=== PATIENT | female | born 1940 | race Caucasian/White ===

== ENCOUNTER → 2020-06-19 08:32 | Outpatient (CLI) | payer MEDICARE, OTHER, SELFPAY ==
--- NOTE | 2020-06-19 | DI.NM.S_ITS ---
PROCEDURE: NM BONE SPECT RADIOPHARMACEUTICAL: 19.2 mCi Tc-99m MDP IV. INDICATIONS: Other anomalies of dental arch relationship TECHNIQUE: Delayed bone scintigrams were obtained of the region of interest 3-4 hours after intravenous administration of Tc-99m MDP. Additional tomographic (SPECT) imaging was performed and displayed in axial, coronal, and sagittal planes. COMPARISON: None. FINDINGS: Tracer uptake is seen in the region of the temporomandibular joints bilaterally. 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 Further assessment could be performed with dedicated temporomandibular joint MRI. Dictated by: Yogesh Guerrero M.D. on 06/19/2020 at 16:55 Approved by: Yogesh Guerrero M.D. on 06/19/2020 at 16:59
== END ==
PROVIDERS: Family Provider Family Medicine; PCP Family Medicine; Referring Provider Family Medicine; Visit Provider Dentist
DX: M26.29 Other anomalies of dental arch relationship (principal)
CPT/HCPCS: 78305; A9503

== ENCOUNTER → 2020-12-10 14:01 | Outpatient (CLI) | payer MEDICARE, OTHER, SELFPAY ==
--- NOTE | 2020-12-10 | DI.CT.S_ITS ---
PROCEDURE: CT ABDOMEN PELVIS WO/W CON INDICATIONS: gross hematuria TECHNIQUE: Optional 5 mm thick noncontrast images acquired from the diaphragm to the symphysis pubis. After the administration of intravenous contrast, 5 mm thick images acquired from the diaphragm to the symphysis pubis after a 10-minute delay. 2 mm thick coronal and sagittal reformats were then performed of the kidneys and ureters. For radiation dose reduction, the following was used: automated exposure control, adjustment of mA and/or kV according to patient size. COMPARISON: None. FINDINGS: Image quality: Excellent. Lung bases: Lung bases are clear. Heart size is normal. Urinary system: Both kidneys are normal in size, without hydronephrosis or nephrolithiasis on pre-contrast images. No perinephric fat stranding. There is normal bilateral renal enhancement. Renal calyces appear normal in morphology when filled with contrast. Opacified portions of both ureters demonstrate normal caliber. Bladder wall thickness is normal. No calcified bladder stones. Other solid organs: Liver is normal in size and enhancement. Gallbladder appears normal. Biliary system is non dilated. Pancreas enhances normally. Spleen is normal in size and enhancement. No adrenal nodules. Peritoneum and bowel: Bowel loops demonstrate normal wall thickness and caliber. A diverticulum is seen at the second portion of the duodenum filled with fluid and air. Moderate stool is seen throughout the colon. No free fluid or air. Nodes and vessels: No retroperitoneal or mesenteric adenopathy by size criteria. Aorta and inferior vena cava are normal in size. Moderate aortic atherosclerotic calcifications are present. Abdominal wall: No ventral hernias. Pelvis: Status post hysterectomy. No pathologic free pelvic fluid. No inguinal hernias or adenopathy. Bones: No suspicious bony lesions. No vertebral body compression fractures. Mild degenerative changes in the pubic symphysis and bilateral hips. Degenerative changes are noted in the lumbar spine. IMPRESSION: No urothelial lesion is seen. No renal or ureteral calculus. Dictated by: Teto Jade M.D. on 12/10/2020 at 15:56 Approved by: Teto Jade M.D. on 12/10/2020 at 16:08
== END ==
PROVIDERS: Family Provider Family Medicine; PCP Family Medicine; Referring Provider Urology; Visit Provider Urology
DX: R31.0 Gross hematuria (principal)
CPT/HCPCS: 74178

== ENCOUNTER → 2020-12-13 08:03 | Outpatient (CLI) | payer MEDICARE, OTHER, SELFPAY ==
--- NOTE | 2020-12-13 08:07 | DI.MRI.S_ITS ---
PROCEDURE: MR TMJ WO CON INDICATIONS: Articular disc disorder of left temporomandibular TECHNIQUE: Axial T1 spin echo, coronal and sagittal PD fast spin echo through the temporomandibular joints, in both the closed- and open-mouth positions. COMPARISON: None. FINDINGS: Image quality: Excellent. Right: Joint is normally aligned on closed and open-mouth positioning. Articular disk demonstrates normal location and morphology. Joint space irregularity can be seen, with mild osteophyte formation. Left: Joint is normally aligned on closed and open-mouth positioning. There tracheal or disc is small in size and irregular. On the open mouth image, the articular disc does properly capture. Joint space irregularity with mild osteophyte formation can be seen. IMPRESSION: Abnormal left articular disc, which is small in size and irregular. Bilateral degenerative changes are seen, with joint space irregularity and osteophyte formation. Dictated by: Gavin Cervantes M.D. on 12/13/2020 at 9:07 Approved by: Gavin Cervantes M.D. on 12/13/2020 at 9:10
== END ==
PROVIDERS: Family Provider Family Medicine; PCP Family Medicine; Referring Provider Dentist; Visit Provider Dentist
DX: M26.69 Other specified disorders of temporomandibular joint (principal); M26.632 Articular disc disorder of left temporomandibular joint
CPT/HCPCS: 70336

== ENCOUNTER → 2021-10-02 11:26 | Outpatient (CLI) | payer MEDICARE, OTHER, SELFPAY ==
--- NOTE | 2021-10-02 | DI.RAD.S_ITS ---
PROCEDURE: XR FOOT RT 2V INDICATIONS: RIGHT FOOT PAIN, SWELLING OF RIGHT FOOT TECHNIQUE: 2 views of the foot were acquired. COMPARISON: None. FINDINGS: Bones: No fractures or dislocations. There is mild to moderate degeneration at the 1st metatarsophalangeal joint and mild degeneration of the interphalangeal joints. No suspicious bony lesions. Soft tissues: There is mild periarticular soft tissue swelling at the 1st metatarsophalangeal joint. IMPRESSION: 1. No fracture or dislocation. 2. Mild to moderate degeneration of the 1st metatarsophalangeal joint and mild degeneration of the interphalangeal joints. Dictated by: Carl Sharma M.D. on 10/02/2021 at 16:16 Approved by: Carl Sharma M.D. on 10/02/2021 at 16:17
== END ==
PROVIDERS: Family Provider Family Medicine; PCP Family Medicine; Referring Provider Nurse Practitioner Family; Visit Provider Nurse Practitioner Family
DX: M19.071 Primary osteoarthritis, right ankle and foot (principal); M79.671 Pain in right foot; M79.89 Other specified soft tissue disorders
CPT/HCPCS: 73620

== ENCOUNTER → 2023-09-07 11:59 | Outpatient (CLI) | payer MEDICARE, OTHER, SELFPAY ==
--- NOTE | 2023-09-07 12:00 | DI.RAD.S_ITS ---
PROCEDURE: XR RIBS LT MIN 3V W CXR1V INDICATIONS: popped rib stretching yesterday while gardening TECHNIQUE: 2 views of the ribs were acquired, along with a single view chest. COMPARISON: None. FINDINGS: Surgical changes and devices: None. Bones and chest wall: No fractures or dislocations. No suspicious bony lesions. Overlying soft tissues appear unremarkable. Lungs and pleura: No pleural effusions or pneumothorax. Lungs appear clear. Mediastinum: Mediastinal contours appear normal. Heart size is normal. IMPRESSION: No displaced rib fracture or pneumothorax. Dictated by: Haris Howard M.D. on 09/07/2023 at 14:47 Approved by: Haris Howard M.D. on 09/07/2023 at 14:47
== END ==
PROVIDERS: Family Provider Family Medicine; PCP Family Medicine; Referring Provider Physician Assistant; Visit Provider Physician Assistant
DX: S29.9XXA Unspecified injury of thorax, initial encounter (principal); X58.XXXA Exposure to other specified factors, initial encounter
CPT/HCPCS: 71101

== ENCOUNTER → 2024-05-04 11:51 | Outpatient (CLI) | payer MEDICARE, OTHER, SELFPAY | PROVIDERS: Family Provider Family Medicine; PCP Family Medicine; Visit Provider Nurse Practitioner Family | DX: T14.8XXA Other injury of unspecified body region, initial encounter (principal) | CPT/HCPCS: 87070; 87075; 87077; 87147; 87186; 87205 ==

== ENCOUNTER 2024-11-28 11:40 | Day surgery (SDC) | payer MEDICARE, OTHER, SELFPAY ==
[2024-11-21 13:51] VITALS: BMI 20.7
--- NOTE | 2024-11-28 | PATH_ITS ---
[facility] Accession Number: [id number] No. of containers..01 Tissue . 01 Material submitted: . anal skin - ANAL LESION . 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 MRV 12/04/2024 1556 Local . 01 Comment: A p16 stain demonstrates block-like epithelial expression with a Ki67 stain showing full-thickness squamous nuclear expression, supporting the above diagnosis. . This case has been reviewed by Dr. Nargis Li, who agrees with the above diagnosis. . * This test was developed and the performance characteristics were validated by [facility]. It has not been cleared or approved by the U.S. Food and Drug Administration. . 01 Electronically signed: . Tommy Cotter MD, Dermatopathologist NPI- [id number] . 01 Gross description: . ANAL LESION: Received in formalin is 1 fragment of gan soft tissue measuring 0.7 x 0.6 x 0.4 cm. Specimen is submitted in its entirety in 1 cassette. /RICARDO 11/29/2024 1739 Local . 01 Pathologist provided ICD-10: D04.9 . 01 CPT . 124695, [id number], [id number] Specimen Comment: A courtesy copy of this report has been sent to [phone] Performed at: [address] [address], [place], [place] [id number] MD Carl Walton MD Phone: [phone]
[2024-11-28] MEDS: LACTATED RINGERS 1,000 ML 42 ML IV (11:50)
[2024-11-28] MEDS: ACETAMINOPHEN 325 MG TABLET 650 MG PO (11:50)
[2024-11-28 12:02] VITALS: BP 154/88; PULSE 78; RESP 16; TEMP 36.3; O2SAT 100; BMI 20.7
--- NOTE | 2024-11-28 12:03 | P.HP_ITS ---
History of Present Illness History of Present Illness Date Patient Seen: 11/28/24 Time Patient Seen: 12:03 Chief complaint: Exam Under Anesthesia Rectal Narrative: Tari is an 84-year-old woman with prolapsing internal hemorrhoids versus a polyp or some other prolapsing tissue. See the office note from October for details. FORMERLY [facility] Medical History (Updated 10/30/24 @ 14:56 by Ángel Moreland MD) Anal polyp Surgical History (Updated 01/04/18 @ 05:48 by Conversion Provider) Status post breast lumpectomy Status post vaginal hysterectomy Social History household members: spouse Smoking Status: Never smoker Meds Home Medications and Allergies Home Medications Medication Instructions Recorded Confirmed Type MAGNESIUM (#MAGNESIUM) 350 mg PO HS ##0 05/17/11 10/30/24 History cholecalciferol (vitamin D3) 25 1,000 iu PO Q DAY ##0 05/17/11 10/30/24 History mcg (1,000 unit) tablet (Vitamin D3) ACETAMINOPHEN 0 mg PO PRN ##0 03/23/12 10/30/24 History ASCORBIC ACID (VITAMIN C) 1,000 mg PO PRN ##2 03/23/12 10/30/24 History multivitamin (Multiple Vitamins 1 tab PO QDAY #0 tabs 04/27/16 10/30/24 History tablet) mupirocin 2 % topical ointment 1 applic topical TID #22 grams 05/04/24 10/30/24 Rx Allergies Allergy/AdvReac Type Severity Reaction Status Date / Time Sulfa (Sulfonamide Allergy Severe RASH Verified 10/30/24 14:39 Antibiotics) (POSSIBLE [SULFA (SULFONAMIDE SWELLING) ANTIBIOTICS)] bee venom protein (honey bee) AdvReac Severe swelling Verified 10/30/24 14:39 nitrofurantoin AdvReac Severe Rash Verified 10/30/24 14:39 Exam Const General: No acute distress Assessment & Plan Assessment and plan (1) Anal polyp: Status: Acute (2) Anal lesion: Status: Acute Plan Examination under anesthesia in the prone position. Possible hemorrhoidectomy versus other biopsy. Time-Based Coding :: [TOTAL MINUTES] spent with patient and on the chart (including review of chart, obtaining history, exam, reviewing outside data, placing orders, documenting exam and treatment plan, and counseling patient) on [DATE]. PROFEE Business Performance Advisor Document charge(s): No
[2024-11-28] MEDS: BUPIVACAINE LIPOSOME 266 MG/20 ML VIAL INJ (12:53)
--- NOTE | 2024-11-28 13:07 | PM.OP.1 ---
Operative Date/Time/Diagnoses Date of procedure: 11/28/24 Time of procedure: 13:09 Pre-op diagnosis: Anal lesion Post-op diagnosis: same Procedure & Clinicians Procedure: Examination under anesthesia and biopsy of anal lesion Same procedure as scheduled: Yes Surgeon: Ángel Moreland Small Offset Printer: Shar Reddy Anesthesia Type: General Operative Notes Procedure in detail: The patient was brought to the operating room and general endotracheal anesthesia was induced. She was placed in the prone frank-knife position. The perineum was prepped and draped in the usual fashion and a time-out was performed. The buttocks were taped apart for exposure. Examination demonstrated 2 cm x 3 cm sessile lesion occupying the posterior and posterior right portions of the perineum extending from the dentate line. Looking at at the face of clock this would represent 11 o'clock to 3 o'clock. A digital rectal exam was performed and no significant internal component was palpated. A 15 blade scalpel was used to excise about 1 cm x 5 mm of the lesion in the posterior suctioned. Exparel was injected into the tissue around the wound. A small amount of cautery was used for hemostasis. Hemostatic Gelfoam was placed into the anal canal. The patient was awakened and brought to recovery room. EBL: 2 mL Specimen: Anal lesion Shar THRASHER provided assistance with exposure, retraction and closure of incisions. Post-operative Condition: stable Disposition: PACU
[2024-11-28 13:08] VITALS: BP 157/75; PULSE 75; RESP 16; TEMP 36.2; O2SAT 100
[2024-11-28 13:13] VITALS: BP 154/83; PULSE 73; RESP 12; TEMP 36.2; O2SAT 99
[2024-11-28 13:19] VITALS: BP 162/66; PULSE 69; RESP 12; TEMP 36.3; O2SAT 95
[2024-11-28 13:27] VITALS: BP 138/72; PULSE 75; RESP 18; TEMP 36.3; O2SAT 96
== END 2024-11-28 13:50 | disposition home or self-care (01) ==
PROVIDERS: Family Provider Family Medicine; PCP Registered Nurse; Referring Provider Surgery; Visit Provider Surgery
PROC: (CPT 45990; principal; 2024-11-28 13:00)
DX: D01.3 Carcinoma in situ of anus and anal canal (principal)
CPT/HCPCS: 46922; J0666; J1100; J2405; J2704; J3010

== ENCOUNTER 2025-01-27 12:20 | Emergency (ER) | payer MEDICARE, OTHER, SELFPAY ==
[2025-01-27] VITALS (13 sets, daily range): BP systolic 135–196; BP diastolic 60–98; PULSE 60–81; RESP 14–24; TEMP 36.4; O2SAT 99–100
--- NOTE | 2025-01-27 12:32 | DI.CT.S_ITS ---
PROCEDURE: CT HEAD/BRAIN WO CON INDICATIONS: Trauma TECHNIQUE: Noncontrast 4.5 mm thick angled axial sections acquired from the foramen magnum to the vertex, with coronal and sagittal reformats. For radiation dose reduction, the following was used: automated exposure control, adjustment of mA and/or kV according to patient size. COMPARISON: None. FINDINGS: Image quality: Diagnostic. CSF spaces: Basal cisterns are patent. No extra-axial fluid collections. The ventricles are symmetric in size and shape. Brain: No acute intracranial hemorrhage or mass effect. There is cerebral volume loss, with resultant ventricular and sulcal prominence. There are periventricular and deep white matter chronic small vessel ischemic changes. There is intracranial internal carotid artery atherosclerosis. Skull and face: Calvarium and visualized facial bones appear intact, without suspicious lesions. Sinuses: Visualized sinuses and mastoids are clear. IMPRESSION: No acute intracranial pathology. Approved by: Teto Jade M.D. on 01/27/2025 at 12:44
--- NOTE | 2025-01-27 12:32 | DI.CT.S_ITS ---
PROCEDURE: CT CERVICAL SPINE WO CON INDICATIONS: Trauma TECHNIQUE: Noncontrast 3 mm thick sections acquired from the skull base to the T4 level. Sagittal and coronal reformats were then constructed. For radiation dose reduction, the following was used: automated exposure control, adjustment of mA and/or kV according to patient size. COMPARISON: None. FINDINGS: Image quality: Excellent. Bones: No acute fractures or dislocations. Visualized superior ribs are intact. Multilevel disc space narrowing and degenerative endplate changes. Multilevel uncovertebral joint and facet hypertrophy. Soft tissues: Prevertebral soft tissues are normal in thickness. No paravertebral hematomas. No apical pneumothoraces. Atherosclerotic calcifications at the bilateral carotid bifurcations IMPRESSION: No acute displaced fracture or traumatic subluxation. Approved by: Teto Jade M.D. on 01/27/2025 at 12:46
--- NOTE | 2025-01-27 12:32 | DI.CT.S_ITS ---
PROCEDURE: CT TRAUMA CHEST ABDOMEN PELVIS INDICATIONS: Trauma; back pain post fall TECHNIQUE: MDCT axial chest images were obtained with IV contrast in the arterial phase. Maximum intensity projections and multiplanar reformats were obtained. MDCT axial abdomen and pelvis images were obtained with IV contrast in the portal venous phase. Multiplanar reformats were obtained. Optional delayed phase scanning may also be obtained Advanced techniques were used to lower patient radiation exposure. COMPARISON:[facility], CT, CT ABDOMEN PELVIS WO/W CON, 12/10/2020, 14:37. FINDINGS Image Quality: Diagnostic. Chest: Lungs and pleura: No pneumothorax or hemothorax. Trace left pleural effusion. No pulmonary contusions or lacerations. Mild lower lobe bronchiectasis. Focal mucous impaction of a superior segment right lower lobe bronchus. No solid pulmonary nodule requiring follow-up. Vascular: No dissection or pseudoaneurysm. No incidental central pulmonary embolism. No hemopericardium. Mediastinum: No mediastinum hematoma. No suspicious mass or lymph nodes. No actionable thyroid nodules. Chest wall: Intact clavicles, scapula, and glenohumeral joint. Surgical clips in the left breast. No displaced rib fractures. Thoracic spine: Linear sclerosis is seen near the superior endplate of T12 without loss of vertebral body height. ABDOMEN and PELVIS: Liver: No laceration or capsular hematoma. Gallbladder: Unremarkable. Biliary system: Non-dilated. Pancreas: Unremarkable. Spleen: No laceration or capsular hematoma. Adrenals: No suspicious nodules. Kidneys: No contrast extravasation or hydronephrosis. No solid masses. Benign-appearing right renal cyst. Vessels and lymph nodes: No pathology lymph nodes by size criteria. No dissection or aneurysm. No retroperitoneal hematoma. Bowel and peritoneum: No suspicious region of mesenteric hemorrhage or hemoperitoneum. No bowel obstruction. Diverticulum is noted at the 2/3 portion of the duodenum. Colonic diverticulosis. Pelvis: Bladder is distended. Status post hysterectomy. Pelvic ring and femurs: No pelvic ring disruption. No hip fractures. Lumbar spine: No acute fracture or traumatic subluxation. Generalized osteopenia. Multilevel degenerative changes. Abdominal wall: No drainable fluid collection or hematoma. IMPRESSION: 1. Questionable subtle nondepressed fracture of the T12 vertebral body without significant loss of vertebral body height. Recommend correlation for point tenderness. 2. Trace left pleural effusion. No pneumothorax. No displaced rib fracture. Approved by: Teto Jade M.D. on 01/27/2025 at 13:05
--- NOTE | 2025-01-27 12:42 | DI.CT.S_ITS ---
PROCEDURE: CT FACIAL BONES WO CON INDICATIONS: fall down stairs, face trauma TECHNIQUE: Noncontrast 2.5 mm thick axial images acquired from the mandible through the frontal sinuses, with coronal and sagittal reformatting. For radiation dose reduction, the following was used: automated exposure control, adjustment of mA and/or kV according to patient size. COMPARISON: None. FINDINGS: Image quality: Excellent. Bones and teeth: Evaluation of the teeth is suboptimal due to dental artifact. Orbital nguyen are intact. Sinus nguyen show no fracture or deformity. Nasal bones and septum are intact. Visualized portions of the mandible demonstrate no fractures or subluxation. Zygomatic arches are intact. Pterygoid plates are intact. Visualized portions of the skull base and auditory canals are intact. Sinuses: Paranasal sinuses are aerated, without fluid levels, mucosal thickening, or mucoceles. Mastoid air cells are aerated. Soft tissues: Skin laceration is noted at the inferior left aspect of the chin. No radiopaque foreign body. Mild surrounding subcutaneous edema. No enlarged lymph nodes. No soft tissue lacerations or debris. Vascular: Visualized vascular structures appear normal in the absence of contrast. Bony vascular foramina and canals are intact. IMPRESSION: Skin laceration is noted at the chin with subcutaneous edema. No radiopaque foreign body. No acute facial fracture. Approved by: Teto Jade M.D. on 01/27/2025 at 13:13
[2025-01-27 12:44] LABS: Add Manual Diff / Slide Review NO; Basophils Absolute Auto 100 /uL (0-100); Basophils Percent Auto 0.7 % (0-2); Eosinophils Absolute Auto 0 /uL (0-450); Eosinophils Percent Auto 0.3 % (2-4); Hematocrit 42.8 % (36-46); Hemoglobin 14.4 g/dL (12.0-16.0); Lymphocytes Absolute Auto 700 /uL (1100-4500); Lymphocytes Percent Auto 7.7 % (25-40); Mean Corpuscular HGB Conc 33.6 % (30-36); Mean Corpuscular Volume 92.3 fL (80-100); Monocytes Absolute Auto 700 /uL (0-900); Monocytes Percent Auto 7.4 % (3-14); Neutrophils Absolute Auto 7400 /uL (1500-7000); Neutrophils Percent Auto 83.9 % (50-75); Platelet Count 247 X10^3/uL (150-400); Red Blood Cell Count 4.64 X10^6/uL (4.0-5.2); Red Cell Distribution Width 12.7 % (11.6-14.8); White Blood Cell Count 8.9 X10^3/uL (4.5-11.0)
[2025-01-27 12:49] LABS: Prothrombin Time 10.8 SECONDS (9.4-12.5)
[2025-01-27 12:51] LABS: PTT Partial Thromboplastin Tim 25 SECONDS (25.1-36.5)
[2025-01-27 12:53] LABS: Alanine Aminotransferase 28 IU/L (<35); Albumin 4.5 g/dL (3.5-5.0); Albumin Globulin Ratio 1.4 (1.0-2.8); Alkaline Phosphatase 92 U/L (38-126); Aspartate Aminotransferase 55 IU/L (14-36); BUN Creatinine Ratio 22.7 (6-22); Blood Urea Nitrogen 17 mg/dL (7-17); Calcium 9.4 mg/dL (8.4-10.2); Carbon Dioxide 25 mmol/L (22-32); Chloride 102 mmol/L (98-107); Estimated Glomerular Filt Rate > 60 mL/min (>60); Globulin 3.3 g/dL (1.7-4.1); Glucose 106 mg/dL (70-99); Lipase 107 U/L (23-300); Potassium 4.7 mmol/L (3.4-5.1); Sodium 135 mmol/L (137-145); Total Protein 7.8 g/dL (6.3-8.2)
[2025-01-27 12:54] LABS: HEMOLYSIS 123 (0-50)
[2025-01-27 12:55] LABS: Lactate (Lactic Acid) 1.7 mmol/L (0.7-2.1)
--- NOTE | 2025-01-27 12:57 | DI.RAD.S_ITS ---
PROCEDURE: XR FOREARM LT 2V INDICATIONS: fall down steps, px to humerus elbow and forearm TECHNIQUE: 2 views of the forearm were acquired. COMPARISON: None. FINDINGS: Bones: Displaced fracture of the capitellum is noted. No mid to distal radial or ulnar fracture. No wrist fracture is seen. Degenerative changes are seen at the 1st carpometacarpal joint. Soft tissues: No suspicious soft tissue calcifications. IMPRESSION: Displaced fracture of the capitellum is partially included. No distal radial/ulnar fracture. Approved by: Teto Jade M.D. on 01/27/2025 at 13:09
--- NOTE | 2025-01-27 12:57 | DI.RAD.S_ITS ---
PROCEDURE: XR HUMERUS LT 2V INDICATIONS: fall down steps, px to humerus elbow and forearm TECHNIQUE: 2 views of the humerus were acquired. COMPARISON: None. FINDINGS: Bones: No acute fractures or dislocations. Distal humerus is not included on this exam No suspicious bony lesions. Soft tissues: No suspicious soft tissue calcifications. IMPRESSION: No acute osseous abnormality in the proximal humerus. If there is continued clinical concern or persistent symptoms, repeat radiographs or cross-sectional imaging (e.g. CT, MRI) may be helpful for further evaluation. Approved by: Teto Jade M.D. on 01/27/2025 at 13:06
--- NOTE | 2025-01-27 12:57 | DI.RAD.S_ITS ---
PROCEDURE: XR ELBOW LT MIN 3V INDICATIONS: fall down steps, px to humerus elbow and forearm TECHNIQUE: 3 views of the elbow were acquired. COMPARISON: None. FINDINGS: Bones: Comminuted intra-articular fracture of the distal humerus with displacement of the capitellum superiorly. Soft tissues: Suspected joint effusion. No suspicious soft tissue calcifications. IMPRESSION: Comminuted intra-articular fracture of the distal humerus with superior displacement of the capitellum. Additional osseous structures in the elbow are difficult to evaluate due to superimposition, and CT could be performed for further evaluation if indicated clinically. Approved by: Teto Jade M.D. on 01/27/2025 at 13:08
--- NOTE | 2025-01-27 14:20 | DI.CT.S_ITS ---
PROCEDURE: CT UE LT WO CON INDICATIONS: comminuted elbow fx, CT advised TECHNIQUE: Noncontrast 1-1.5 mm axial sections were acquired through the elbow joint, with coronal and sagittal reformats. For radiation dose reduction, the following was used: automated exposure control, adjustment of mA and/or kV according to patient size. COMPARISON: [facility], CR, XR ELBOW LT MIN 3V, 01/27/2025, 13:05. FINDINGS: Image quality: Excellent. Bones: Comminuted displaced intra-articular fracture of the distal humerus. Capitellum articular surface component is displaced superiorly by up to 2.8 cm. Trochlear articular surface component is displaced superiorly by approximately 0.7 cm. Mildly displaced fracture of the lateral epicondyle. Medial epicondyle is intact. No definite radial head or proximal ulnar fracture is seen. Soft tissues: Moderate lipohemarthrosis. The tendons, ligaments, and articular cartilages are not well evaluated with CT. Mild subcutaneous edema overlying the olecranon. IMPRESSION: 1. Comminuted displaced fracture of the distal humerus with significant displacement of the capitellar articular surface component and mild displacement of the trochlear articular surface component. 2. No definite proximal radial or ulnar fracture. 3. Moderate lipohemarthrosis. Approved by: Teto Jade M.D. on 01/27/2025 at 14:15
--- NOTE | 2025-01-27 14:47 | ED.GENADULT ---
HPI - General Adult General Chief complaint: Tra[facility] L elbow px Time Seen by Provider: 01/27/25 12:31 History of Present Illness HPI narrative: 84-year-old female resident of [place], fell down 3 steps outside at her home, complaining of pain and swelling to her left elbow, back pain upper mid lower, also laceration to her chin. Doubts loss of consciousness. Denies neck pain. No focal numbness or weakness to face arm or leg, left upper extremity motor functions limited by elbow pain. No swelling or pain to the left distal wrist or hand or fingers. Nor to left upper arm or shoulder. No pain along her clavicle or anterior chest or trunk. Related Data Home Medications Medication Instructions Recorded Confirmed MAGNESIUM (#MAGNESIUM) 350 mg PO HS ##0 05/17/11 12/18/24 cholecalciferol (vitamin D3) 25 1,000 iu PO Q DAY ##0 05/17/11 12/18/24 mcg (1,000 unit) tablet (Vitamin D3) ACETAMINOPHEN 0 mg PO PRN ##0 03/23/12 12/18/24 ASCORBIC ACID (VITAMIN C) 1,000 mg PO PRN ##2 03/23/12 12/18/24 multivitamin (Multiple Vitamins 1 tab PO QDAY #0 tabs 04/27/16 12/18/24 tablet) Previous Rx's Medication Instructions Recorded mupirocin 2 % topical ointment 1 applic topical TID #22 grams 05/04/24 Allergies Allergy/AdvReac Type Severity Reaction Status Date / Time Sulfa (Sulfonamide Allergy Severe RASH Verified 12/18/24 12:56 Antibiotics) (POSSIBLE [SULFA (SULFONAMIDE SWELLING) ANTIBIOTICS)] bee venom protein (honey bee) AdvReac Severe swelling Verified 12/18/24 12:56 nitrofurantoin AdvReac Severe Rash Verified 12/18/24 12:56 Patient History Medical History Anal polyp Surgical History Status post breast lumpectomy Status post vaginal hysterectomy Social History household members: spouse Exam Narrative Exam Narrative: GENERAL: Well-developed patient, in mild distress. HEAD: Atraumatic. Normocephalic. EYES: Pupils equal round and reactive. Extraocular motions intact. No scleral icterus. No injection or drainage. ENT: Nose without bleeding, purulent drainage. Throat without erythema, tonsillar hypertrophy or exudate. Airway patent. Curvilinear laceration 2 cm length chin under angle of mandible. NECK: Trachea midline. Non tender CARDIOVASCULAR: Regular rate and rhythm without murmurs, gallops, or rubs. RESPIRATORY: Clear to auscultation. Breath sounds equal bilaterally. No wheezes, rales, or rhonchi. GASTROINTESTINAL: Abdomen soft, non-tender, nondistended. EXTREMITIES: Tenderness to left elbow, distal wrist without gross deformity, nor any tenderness or swelling to hand or fingers in the left side. No upper arm shoulder clavicle tenderness left side. BACK: Nontender without deformity or crepitance. No flank tenderness. NEURO: AOx3. Motor functions grossly nonfocal SKIN: No rash or erythema of visible areas Initial Vital Signs Initial Vital Signs: Vital Signs Temperature 97.5 F L 01/27/25 12:27 Pulse Rate 60 01/27/25 12:27 Respiratory Rate 20 01/27/25 12:27 Blood Pressure 196/85 H 01/27/25 12:27 Pulse Oximetry 100 01/27/25 12:27 Oxygen Delivery Method Room Air 01/27/25 12:27 Procedures Laceration Repair Laceration 1: Time of procedure: 17:30 Site: face (chin) Size (cm): 2 Description: linear (curvilinear) Depth: simple, single layer Local Anesthetic: lidocaine 1% and with epi Amount of anesthesia used (mL): 3 Skin layer closed with: nylon Skin layer suture size: 5-0 Number of sutures: 5 Course Orders Ordered: ED Orders 01/27/25 12:25 Complete Blood Count AUTO DIFF Stat Comprehensive Metabolic Panel Stat Lactate (Lactic Acid) Stat Lipase Stat PTT Partial Thromboplastin Gary Stat Prothrombin Time INR Stat 01/27/25 12:32 CT Trauma Chest Abdomen Pelvis Stat CT cervical spine wo con Stat CT head/brain wo con Stat EKG-12 Lead Stat 01/27/25 12:42 CT facial bones wo con Stat 01/27/25 12:57 XR elbow LT min 3V Stat XR forearm LT 2V Stat XR humerus LT 2V Stat 01/27/25 14:20 CT UE LT wo con Stat Discontinued Medications Bacitracin (Bacitracin Oint 0.9 Gm Pckt) 1 applic TOP NOW ONE Stop: 01/27/25 16:42 Last Admin: 01/27/25 17:19 Dose: 1 applic Documented By: JUANITO Hydromorphone HCl (Hydromorphone 0.5 Mg Inj) 0.5 mg IV NOW ONE Stop: 01/27/25 17:48 Last Admin: 01/27/25 17:55 Dose: 0.5 mg Documented By: JUANITO Lidocaine/Epinephrine (Lidocaine 1% W/Epi 10ml) 4 ml INJ INTRA-OP ONE Stop: 01/27/25 15:55 Last Admin: 01/27/25 16:14 Dose: 4 ml Documented By: JUANITO Lidocaine/Prilocaine (Lidocaine/Prilocaine 5 Gm) 5 gm TOP NOW ONE Stop: 01/27/25 14:20 Last Admin: 01/27/25 15:19 Dose: 5 gm Documented By: JUANITO Vital Signs Vital signs: Vital Signs - 8 hr 01/27/25 13:52 01/27/25 13:52 01/27/25 14:00 Pulse Rate 81 69 Respiratory Rate 24 Blood Pressure 145/65 H Pulse Oximetry 100 100 01/27/25 14:00 01/27/25 14:30 01/27/25 14:30 Pulse Rate 72 Respiratory Rate 16 Blood Pressure 157/72 H 141/62 H Pulse Oximetry 100 01/27/25 15:00 01/27/25 15:30 01/27/25 15:44 Pulse Rate 61 66 Respiratory Rate 14 17 Blood Pressure 155/70 H Pulse Oximetry 100 100 01/27/25 15:44 01/27/25 16:00 01/27/25 16:00 Pulse Rate 61 67 Respiratory Rate 16 15 Blood Pressure 150/61 H Pulse Oximetry 100 100 01/27/25 16:30 01/27/25 16:30 01/27/25 17:00 Pulse Rate 60 Respiratory Rate 18 Blood Pressure 135/60 144/65 H Pulse Oximetry 99 01/27/25 17:00 01/27/25 17:30 01/27/25 17:30 Pulse Rate 62 63 Respiratory Rate Blood Pressure 147/67 H Pulse Oximetry 99 100 01/27/25 18:00 Pulse Rate 65 Respiratory Rate 22 Blood Pressure Pulse Oximetry Medical Decision Making Lab Data Lab results reviewed: Yes I reviewed the patient's lab results. Lab results narrative: White blood cell count 8900, hemoglobin 14.4, platelets adequate. Glucose 106. Normal renal function. Sodium 135 otherwise unremarkable BNP. Slight AST elevation otherwise liver functions normal. Lipase normal. Lactate 1.7 normal. 01/27/25 12:25 01/27/25 12:25 Labs: Lab Results 01/27/25 Range/Units 12:25 WBC 8.9 (4.5-11.0) X10^3/uL RBC 4.64 (4.0-5.2) X10^6/uL Hgb 14.4 (12.0-16.0) g/dL Hct 42.8 (36-46) % MCV 92.3 (80-100) fL MCH 31.0 (26-34) PG MCHC 33.6 (30-36) % RDW 12.7 (11.6-14.8) % Plt Count 247 (150-400) X10^3/uL Neut % (Auto) 83.9 H (50-75) % Lymph % (Auto) 7.7 L (25-40) % [place] % (Auto) 7.4 (3-14) % Eos % (Auto) 0.3 L (2-4) % Baso % (Auto) 0.7 (0-2) % Neut # (Auto) 7400 H (3398-4854) /uL Lymph # (Auto) 700 L (2522-7772) /uL [place] # (Auto) 700 (0-900) /uL Eos # (Auto) 0 (0-450) /uL Baso # (Auto) 100 (0-100) /uL PT 10.8 (9.4-12.5) SECONDS INR 1.0 (0.9-1.3) APTT 25 L (25.1-36.5) SECONDS Sodium 135 L (137-145) mmol/L Potassium 4.7 (3.4-5.1) mmol/L Chloride 102 (98-107) mmol/L Carbon Dioxide 25 (22-32) mmol/L BUN 17 (7-17) mg/dL Creatinine 0.75 (0.52-1.04) mg/dL Estimated GFR > 60 (>60) mL/min BUN/Creatinine Ratio 22.7 H (6-22) Glucose 106 H (70-99) mg/dL Lactate 1.7 (0.7-2.1) mmol/L Calcium 9.4 (8.4-10.2) mg/dL Total Bilirubin 1.0 (0.2-1.3) mg/dL AST 55 H (14-36) IU/L ALT 28 (<35) IU/L Alkaline Phosphatase 92 (38-126) U/L Total Protein 7.8 (6.3-8.2) g/dL Albumin 4.5 (3.5-5.0) g/dL Globulin 3.3 (1.7-4.1) g/dL Albumin/Globulin Ratio 1.4 (1.0-2.8) Lipase 107 (23-300) U/L Imaging Data CT chest abdomen pelvis: Radiologist's Impression: Close Upper Extremity CT (Signed) Teto Jade - 01/27/25 Elbow X-Ray (Signed) Teto Jade 01/27/25 Humerus X-Ray (Signed) Teto Jade - 01/27/25 Forearm X-Ray (Signed) Teto Jade - 01/27/[address] (Signed) Teto Jade 01/27/[address] (Signed) Teto Jade 01/27/[address] (Signed) Teto Jade - 01/27/25 Chest/Abdomen/Pelvis CT (Signed) Teto Jade 01/27/25 [place] [address] CT Scan Report Signed Patient: Tari Simms MR#: [id number] : 1940 Acct:[id number] Age/Sex: 84 / F Date of Service: 01/27/25 Loc: ED Accession Number: [id number] Procedure: CT Trauma Chest Abdomen Pelvis Ordering Provider: Stefano Rowland MD PROCEDURE: CT TRAUMA CHEST ABDOMEN PELVIS INDICATIONS: Trauma; back pain post fall TECHNIQUE: MDCT axial chest images were obtained with IV contrast in the arterial phase. Maximum intensity projections and multiplanar reformats were obtained. MDCT axial abdomen and pelvis images were obtained with IV contrast in the portal venous phase. Multiplanar reformats were obtained. Optional delayed phase scanning may also be obtained Advanced techniques were used to lower patient radiation exposure. COMPARISON:[facility], CT, CT ABDOMEN PELVIS WO/W CON, 12/10/2020, 14:37. FINDINGS Image Quality: Diagnostic. Chest: Lungs and pleura: No pneumothorax or hemothorax. Trace left pleural effusion. No pulmonary contusions or lacerations. Mild lower lobe bronchiectasis. Focal mucous impaction of a superior segment right lower lobe bronchus. No solid pulmonary nodule requiring follow-up. Vascular: No dissection or pseudoaneurysm. No incidental central pulmonary embolism. No hemopericardium. Mediastinum: No mediastinum hematoma. No suspicious mass or lymph nodes. No actionable thyroid nodules. Chest wall: Intact clavicles, scapula, and glenohumeral joint. Surgical clips in the left breast. No displaced rib fractures. Thoracic spine: Linear sclerosis is seen near the superior endplate of T12 without loss of vertebral body height. ABDOMEN and PELVIS: Liver: No laceration or capsular hematoma. Gallbladder: Unremarkable. Biliary system: Non-dilated. Pancreas: Unremarkable. Spleen: No laceration or capsular hematoma. Adrenals: No suspicious nodules. Kidneys: No contrast extravasation or hydronephrosis. No solid masses. Benign-appearing right renal cyst. Vessels and lymph nodes: No pathology lymph nodes by size criteria. No dissection or aneurysm. No retroperitoneal hematoma. Bowel and peritoneum: No suspicious region of mesenteric hemorrhage or hemoperitoneum. No bowel obstruction. Diverticulum is noted at the 2/3 portion of the duodenum. Colonic diverticulosis. Pelvis: Bladder is distended. Status post hysterectomy. Pelvic ring and femurs: No pelvic ring disruption. No hip fractures. Lumbar spine: No acute fracture or traumatic subluxation. Generalized osteopenia. Multilevel degenerative changes. Abdominal wall: No drainable fluid collection or hematoma. IMPRESSION: 1. Questionable subtle nondepressed fracture of the T12 vertebral body without significant loss of vertebral body height. Recommend correlation for point tenderness. 2. Trace left pleural effusion. No pneumothorax. No displaced rib fracture. Approved by: Teto Jade M.D. on 01/27/2025 at 13:05 CT scan - head: Radiologist's Impression: [address] [address] [address] Scan Report Signed Patient: Tari Simms MR#: [id number] : 1940 Acct:[id number] Age/Sex: 84 / F Date of Service: 01/27/25 Loc: ED Accession Number: [id number] Procedure: CT head/brain wo con Ordering Provider: Stefano Rowland MD PROCEDURE: CT HEAD/BRAIN WO CON INDICATIONS: Trauma TECHNIQUE: Noncontrast 4.5 mm thick angled axial sections acquired from the foramen magnum to the vertex, with coronal and sagittal reformats. For radiation dose reduction, the following was used: automated exposure control, adjustment of mA and/or kV according to patient size. COMPARISON: None. FINDINGS: Image quality: Diagnostic. CSF spaces: Basal cisterns are patent. No extra-axial fluid collections. The ventricles are symmetric in size and shape. Brain: No acute intracranial hemorrhage or mass effect. There is cerebral volume loss, with resultant ventricular and sulcal prominence. There are periventricular and deep white matter chronic small vessel ischemic changes. There is intracranial internal carotid artery atherosclerosis. Skull and face: Calvarium and visualized facial bones appear intact, without suspicious lesions. Sinuses: Visualized sinuses and mastoids are clear. IMPRESSION: No acute intracranial pathology. Approved by: Teto Jade M.D. on 01/27/2025 at 12:44 CT - cervical spine: Radiologist's Impression: [place] [address] CT Scan Report Signed Patient: Tari Simms MR#: [id number] : 1940 Acct:[id number] Age/Sex: 84 / F Date of Service: 01/27/25 Loc: ED Accession Number: [id number] Procedure: CT cervical spine wo con Ordering Provider: Stefano Rowland MD PROCEDURE: CT CERVICAL SPINE WO CON INDICATIONS: Trauma TECHNIQUE: Noncontrast 3 mm thick sections acquired from the skull base to the T4 level. Sagittal and coronal reformats were then constructed. For radiation dose reduction, the following was used: automated exposure control, adjustment of mA and/or kV according to patient size. COMPARISON: None. FINDINGS: Image quality: Excellent. Bones: No acute fractures or dislocations. Visualized superior ribs are intact. Multilevel disc space narrowing and degenerative endplate changes. Multilevel uncovertebral joint and facet hypertrophy. Soft tissues: Prevertebral soft tissues are normal in thickness. No paravertebral hematomas. No apical pneumothoraces. Atherosclerotic calcifications at the bilateral carotid bifurcations IMPRESSION: No acute displaced fracture or traumatic subluxation. Approved by: Teto Jade M.D. on 01/27/2025 at 12:46 CT face: Radiologist's Impression: [address] [address] [address] Scan Report Signed Patient: Tari Simms MR#: [id number] : 1940 Acct:[id number] Age/Sex: 84 / F Date of Service: 01/27/25 Loc: ED Accession Number: [id number] Procedure: CT facial bones wo con Ordering Provider: Stefano Rowland MD PROCEDURE: CT FACIAL BONES WO CON INDICATIONS: fall down stairs, face trauma TECHNIQUE: Noncontrast 2.5 mm thick axial images acquired from the mandible through the frontal sinuses, with coronal and sagittal reformatting. For radiation dose reduction, the following was used: automated exposure control, adjustment of mA and/or kV according to patient size. COMPARISON: None. FINDINGS: Image quality: Excellent. Bones and teeth: Evaluation of the teeth is suboptimal due to dental artifact. Orbital nguyen are intact. Sinus nguyen show no fracture or deformity. Nasal bones and septum are intact. Visualized portions of the mandible demonstrate no fractures or subluxation. Zygomatic arches are intact. Pterygoid plates are intact. Visualized portions of the skull base and auditory canals are intact. Sinuses: Paranasal sinuses are aerated, without fluid levels, mucosal thickening, or mucoceles. Mastoid air cells are aerated. Soft tissues: Skin laceration is noted at the inferior left aspect of the chin. No radiopaque foreign body. Mild surrounding subcutaneous edema. No enlarged lymph nodes. No soft tissue lacerations or debris. Vascular: Visualized vascular structures appear normal in the absence of contrast. Bony vascular foramina and canals are intact. IMPRESSION: Skin laceration is noted at the chin with subcutaneous edema. No radiopaque foreign body. No acute facial fracture. Approved by: Teto Jade M.D. on 01/27/2025 at 13:13 Extremity x-ray #1: Radiologist's Impression: [address] [address] XRay Report Signed Patient: Tari Simms MR#: [id number] : 1940 Acct:[id number] Age/Sex: 84 / F Date of Service: 01/27/25 Loc: ED Accession Number: [id number] Procedure: XR forearm LT 2V Ordering Provider: Stefano Rowland MD PROCEDURE: XR FOREARM LT 2V INDICATIONS: fall down steps, px to humerus elbow and forearm TECHNIQUE: 2 views of the forearm were acquired. COMPARISON: None. FINDINGS: Bones: Displaced fracture of the capitellum is noted. No mid to distal radial or ulnar fracture. No wrist fracture is seen. Degenerative changes are seen at the 1st carpometacarpal joint. Soft tissues: No suspicious soft tissue calcifications. IMPRESSION: Displaced fracture of the capitellum is partially included. No distal radial/ulnar fracture. Approved by: Teto Jade M.D. on 01/27/2025 at 13:09 Extremity x-ray #2: Radiologist's Impression: [address] [address] XRay Report Signed Patient: Tari Simms MR#: [id number] : 1940 Acct:[id number] Age/Sex: 84 / F Date of Service: 01/27/25 Loc: ED Accession Number: [id number] Procedure: XR humerus LT 2V Ordering Provider: Stefano Rowland MD PROCEDURE: XR HUMERUS LT 2V INDICATIONS: fall down steps, px to humerus elbow and forearm TECHNIQUE: 2 views of the humerus were acquired. COMPARISON: None. FINDINGS: Bones: No acute fractures or dislocations. Distal humerus is not included on this exam No suspicious bony lesions. Soft tissues: No suspicious soft tissue calcifications. IMPRESSION: No acute osseous abnormality in the proximal humerus. If there is continued clinical concern or persistent symptoms, repeat radiographs or cross-sectional imaging (e.g. CT, MRI) may be helpful for further evaluation. Approved by: Teto Jade M.D. on 01/27/2025 at 13:06 Extremity x-ray #3: Radiologist's Impression: [address] [address] XRay Report Signed Patient: Tari Simms MR#: [id number] : 1940 Acct:[id number] Age/Sex: 84 / F Date of Service: 01/27/25 Loc: ED Accession Number: [id number] Procedure: XR elbow LT min 3V Ordering Provider: Stefano Rowland MD PROCEDURE: XR ELBOW LT MIN 3V INDICATIONS: fall down steps, px to humerus elbow and forearm TECHNIQUE: 3 views of the elbow were acquired. COMPARISON: None. FINDINGS: Bones: Comminuted intra-articular fracture of the distal humerus with displacement of the capitellum superiorly. Soft tissues: Suspected joint effusion. No suspicious soft tissue calcifications. IMPRESSION: Comminuted intra-articular fracture of the distal humerus with superior displacement of the capitellum. Additional osseous structures in the elbow are difficult to evaluate due to superimposition, and CT could be performed for further evaluation if indicated clinically. Approved by: Teto Jade M.D. on 01/27/2025 at 13:08 CT left elbow noncontrast: Radiologist's Impression: [place] [address] CT Scan Report Signed Patient: Tari Simms MR#: [id number] : 1940 Acct:[id number] Age/Sex: 84 / F Date of Service: 01/27/25 Loc: ED Accession Number: [id number] Procedure: CT UE LT wo con Ordering Provider: Stefano Rowland MD PROCEDURE: CT UE LT WO CON INDICATIONS: comminuted elbow fx, CT advised TECHNIQUE: Noncontrast 1-1.5 mm axial sections were acquired through the elbow joint, with coronal and sagittal reformats. For radiation dose reduction, the following was used: automated exposure control, adjustment of mA and/or kV according to patient size. COMPARISON: [facility], CR, XR ELBOW LT MIN 3V, 01/27/2025, 13:05. FINDINGS: Image quality: Excellent. Bones: Comminuted displaced intra-articular fracture of the distal humerus. Capitellum articular surface component is displaced superiorly by up to 2.8 cm. Trochlear articular surface component is displaced superiorly by approximately 0.7 cm. Mildly displaced fracture of the lateral epicondyle. Medial epicondyle is intact. No definite radial head or proximal ulnar fracture is seen. Soft tissues: Moderate lipohemarthrosis. The tendons, ligaments, and articular cartilages are not well evaluated with CT. Mild subcutaneous edema overlying the olecranon. IMPRESSION: 1. Comminuted displaced fracture of the distal humerus with significant displacement of the capitellar articular surface component and mild displacement of the trochlear articular surface component. 2. No definite proximal radial or ulnar fracture. 3. Moderate lipohemarthrosis. Approved by: Teto Jade M.D. on 01/27/2025 at 14:15 ECG Data Attestation: I personally reviewed and interpreted this ECG as follows: Interpretation: Normal sinus rhythm with rate of 61, no obvious ST segment elevation or depression changes. Flat T-waves diffuse. GA 122, QRS 102, QTC 430. MDM Narrative Medical decision making narrative: 84-year-old female with fall down 3-4 stairs at home [facility], predominance of pain left elbow, also has chin laceration, as well as mid upper back pain. No neuro deficits. Modified trauma activation by mechanism. Primary survey: Airway breathing circulation intact. GCS 15. Secondary survey: See physical exam sections, remarkable for left elbow area swelling, small chin lack, no neck swelling or obvious airway compromise. No neuro deficits. CT head, face, C-spine, chest abdomen and pelvis trauma imaging. X-rays to the left elbow forearm. Keep NPO. Patient received IV fentanyl by [facility], declines further pain medications at this time. CT head noncontrast, no acute changes. See radiology report. CT face noncontrast, no acute bony changes, soft tissue laceration noted, no mentioned or foreign bodies. See radiology report. CT cervical spine, arthritic changes, no acute changes or dislocations. See radiology report. CT chest abdomen and pelvis. Questionable subtle nondepressed T12 vertebral body fracture without significant loss of vertebral body height, correlation for point tenderness. Trace left pleural effusion. No pneumothorax, no displaced rib fractures. No intra-abdominal/pelvic acute injuries. See radiology report. Patient has no midline tenderness along palpation of the spinous processes thoracic or lumbar. Suspect T12 changes above might be old. Left humerus x-ray, no proximal humerus fractures, see radiology report. Left forearm x-ray series, displaced fracture through the capitellum partially included, no distal radial ulnar fracture obvious. See radiology report. Left elbow x-ray series, comminuted intra-articular fracture distal humerus with superior displacement of the capitellum, consider CT further imaging. See radiology report. CT left elbow. Impression: ?Comminuted displaced fracture of the distal humerus with significant displacement of the capitellar articular surface component and then mild displacement of the trochlear articular surface component. No definite proximal radius or ulnar fracture. Moderate lipohemarthrosis.? see radiology report. 1620, case discussed with local orthopedics Dr. Luna who requests higher level of care, will consult with [facility]/ Orthopedic surgery regarding possible transfer, versus follow up in their system See chin laceration repair procedure note. Last tetanus 2021 UTD. 1650, case discussed with [facility] intake, images pushed, await call back from Orthopedic surgery for consultation and disposition plan. 174, case discussed with Orthopedic surgery Dr. Nair who advises transfer, likely will need urgent surgical stabilization, placed in left long arm splint and sling for transfer. Patient and family aware. They have [employer] insurance, requesting that service for transfer to [facility]. Transported by [facility] per request. Keep NPO for possible urgent surgery. Critical Care Time Critical Care Time Critical Care Time: Yes Total Critical Care Time: 35 Attestation: The high probability of a clinically significant, sudden or life threatening deterioration of the [musculoskeletal, dermatologic] system(s) required my full and direct attention, intervention and personal management. The aggregate critical care time was [35] minutes. This time is in addition to time spent performing reported procedures but includes the following: [x] Data Review and interpretation [x] Patient assessment and monitoring of vital signs [x] Documentation [x] Medication orders and management Discharge Plan Departure Patient Disposition: [facility] Clinical Impression: Closed fracture of left elbow, Abrasion of face, Chin laceration, Back strain Prescriptions: No Action mupirocin 2 % ointment 1 applic topical TID Qty: 22 0RF cholecalciferol (vitamin D3) [Vitamin D3] 1,000 UNIT tablet 1,000 iu PO Q DAY Qty: 0 MAGNESIUM (#MAGNESIUM) 350 mg PO HS Qty: 0 ACETAMINOPHEN 0 mg PO PRN Qty: 0 ASCORBIC ACID (VITAMIN C) 1,000 mg PO PRN Qty: 2 multivitamin [Multiple Vitamins] 1 EACH tablet 1 tab PO QDAY Qty: 0 Referrals: Johana Garcia ARNP [Primary Care Provider] -
[2025-01-27] MEDS: LIDOCAINE/PRILOCAINE 5 GM TOP (15:19)
--- NOTE | 2025-01-27 15:43 | EKG_ITS ---
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
[2025-01-27] MEDS: LIDOCAINE 1% W/EPI 10ML 4 ML INJ (16:14)
[2025-01-27] MEDS: BACITRACIN OINT 0.9 GM PCKT 1 APPLIC TOP (17:19)
[2025-01-27] MEDS: HYDROMORPHONE 0.5 MG INJ IV (17:55)
--- NOTE | 2025-01-27 18:35 | PC.NURSE ---
This RN gave verbal report to KYRIE Evans from [facility]. This RN gave this department phone number to this RN incase any additional question arise. This RN placed patient in long arm split using Orthoglass and elastic bandages to hold. Patient Radial pulse is normal post splint and cap refill remains <2 seconds. This RN was with student RN during all interactions and care that was provided by student RN and is in agreement with all charting by this student RN.
--- NOTE | 2025-01-27 18:44 | PC.NURSE ---
EXPLORATION MANAGER Note: Started consult with [facility]/ Ortho 1635. Images pushed, face sheet faxed, reports faxed. Mary called back for consult at 1735. Dr. Kaur accepted for transfer ED to ED. Patient requested to go by Air. Seven DAVIDSON accepted call at 1745, ETA to 1815. Called / transfer center and advised ETA.
== END 2025-01-27 18:46 | disposition short-term general hospital (02) ==
PROVIDERS: Emergency Provider Emergency Medicine; Family Provider Family Medicine; PCP Registered Nurse
DX: S42.402A Unspecified fracture of lower end of left humerus, initial encounter for closed fracture (principal); S00.81XA Abrasion of other part of head, initial encounter; S39.012A Strain of muscle, fascia and tendon of lower back, initial encounter; R40.2412 Glasgow coma scale score 13-15, at arrival to emergency department; S01.81XA Laceration without foreign body of other part of head, initial encounter; W10.9XXA Fall (on) (from) unspecified stairs and steps, initial encounter
CPT/HCPCS: 12011; 29105; 70450; 70486; 71275; 72125; 73060; 73080; 73090; 73200; 74177; 80053; 83605; 83690; 85025; 85610; 85730; 93005; 96374; 99284; 99291; G0390; J1171; Q9967

== ENCOUNTER → 2025-02-22 12:18 | Outpatient (CLI) | payer MEDICARE, OTHER, SELFPAY ==
--- NOTE | 2025-02-22 12:21 | DI.RAD.S_ITS ---
PROCEDURE: XR CHEST 2V INDICATIONS: Wedge compression fracture of T11-T12 vertebra, subsequent e TECHNIQUE: 2 views of the chest were acquired. COMPARISON: [facility], CHEST 2 VIEW, 10/16/2015, 11:51. FINDINGS: Surgical changes and devices: There fixation rods in the thoracolumbar spine and several areas of overlying skin cass in the dorsal soft tissues. Lungs and pleura: Small left pleural effusion. Otherwise hyperinflated, hyperlucent lungs with slight coarsening of the interstitial markings. No pneumothorax. Mediastinum: Mediastinal contours are normal. Heart size is normal. Bones and chest wall: Mild T12 compression fracture with fixation as described. Overlying soft tissues are within normal limits. IMPRESSION: Small left pleural effusion, nonspecific. Recent posterior thoracolumbar fusion with skin cass remaining. Dictated by: Nikki Solis M.D. on 02/22/2025 at 22:10 Approved by: Nikki Solis M.D. on 02/22/2025 at 22:13
== END ==
PROVIDERS: Family Provider Family Medicine; PCP Registered Nurse; Referring Provider Registered Nurse; Visit Provider Registered Nurse
DX: S22.080D Wedge compression fracture of T11-T12 vertebra, subsequent encounter for fracture with routine healing (principal); S42.492D Other displaced fracture of lower end of left humerus, subsequent encounter for fracture with routine healing; S42 Fracture of shoulder and upper arm
CPT/HCPCS: 71046

== ENCOUNTER → 2025-04-04 09:09 | Outpatient (CLI) | payer MEDICARE, OTHER, SELFPAY ==
--- NOTE | 2025-04-04 | DI.RAD.S_ITS ---
PROCEDURE: XR THORACIC SPINE 2V INDICATIONS: Back pain TECHNIQUE: 3 views of the thoracic spine were acquired. COMPARISON: [facility], CR, XR LUMBAR SPINE 2-3V, 04/04/2025, 9:15. FINDINGS: Thoracic spine curvature and alignment: Posterior fusion T10 through L2 provided by rods and pedicle screw shows anatomic alignment without postsurgical complication. Accentuation of the normal kyphotic curve appreciated Bones: Moderate T9 , mild T2 through T8 and mild L1 compression fractures appreciated. Disc spaces: Severe degenerative disc disease seen throughout the upper midthoracic spine Soft tissues: No soft tissue swelling, calcification or mass. IMPRESSION: Chronic findings Dictated by: Keith Bravo M.D. on 04/05/2025 at 11:52 Approved by: Keith Bravo M.D. on 04/05/2025 at 11:54
--- NOTE | 2025-04-04 09:12 | DI.RAD.S_ITS ---
PROCEDURE: XR LUMBAR SPINE 2-3V INDICATIONS: BACK PAIN TECHNIQUE: 3 views of the lumbar spine were acquired. COMPARISON: None. FINDINGS: Lumbar spine curvature and alignment: Posterior fusion T10 through L2 provided by long rods and pedicle screws shows anatomic alignment. No postsurgical complication. Grade 1 L4-5 spondylolisthesis due to degenerate facet disease noted Bones: Moderate T9 and mild T12 compression fractures noted Disc spaces: Severe L1-2 moderate L5-S1 degenerative disc disease noted. There is moderate L3-4 and severe L4-5 and L5-S1 degenerative facet disease. Soft tissues: Small left pleural effusion IMPRESSION: Moderate T9 and mild T12 compression fractures Posterior fusion T10 through L2. Anatomic alignment. No complication Degeneration Dictated by: Keith Bravo M.D. on 04/05/2025 at 11:50 Approved by: Keith Bravo M.D. on 04/05/2025 at 11:52
== END ==
LOC: RAD 09:11
PROVIDERS: Family Provider Family Medicine; PCP Registered Nurse; Referring Provider Orthopaedic Surgery Orthopaedic Surgery of the Spine; Visit Provider Orthopaedic Surgery Orthopaedic Surgery of the Spine
DX: S22.070A Wedge compression fracture of T9-T10 vertebra, initial encounter for closed fracture (principal); Z98.1 Arthrodesis status; M51.369 Other intervertebral disc degeneration, lumbar region without mention of lumbar back pain or lower extremity pain; M51.34 Other intervertebral disc degeneration, thoracic region
CPT/HCPCS: 72070; 72100

== ENCOUNTER → 2025-05-18 15:46 | Outpatient (CLI) | payer MEDICARE, OTHER, SELFPAY ==
--- NOTE | 2025-05-18 15:47 | DI.MRI.S_ITS ---
PROCEDURE: MR PELVIS WO/W CON INDICATIONS: growing labial mass TECHNIQUE: Coronal HASTE, sagittal breath-hold T2 FSE; axial T1 FSE with and without fat saturation through the pelvis. Optional long- and short-axis uterine nonbreath-hold T2 FSE through the uterus. Sagittal or axial dynamic VIBE during administration of contrast. Post-contrast axial or coronal VIBE/2-D FLASH with fat saturation from the iliac crests to the symphysis. Optional diffusion weighted imaging and ADC may be performed. COMPARISON: [facility], CT, CT TRAUMA CHEST ABDOMEN PELVIS, 01/27/2025, 12:40. FINDINGS: Image quality: Excellent. Uterus: Absent. Adnexa: No suspicious cystic or solid lesions. Urinary system: Bladder wall is normal in thickness. Distal ureters are non distended. Urethra appears normal in morphology. Nodes and vessels: No pelvic or inguinal adenopathy by size criteria. Iliac vessels are normal in size. Bowel and peritoneum: No pathologic free pelvic fluid. Inferior colon and small bowel loops are normal in caliber. Diverticulosis. Prominent stool in the colon. Soft tissues: No inguinal hernias. No findings of pelvic floor incompetence in the absence of provocation. Bones: Marrow demonstrates normal overall signal. IMPRESSION: 1. No labial mass or cystic lesion. 2. Post hysterectomy. If high suspicion for occult abnormality consider ultrasound or biopsy for further evaluation. Dictated by: Boaz Condon M.D. on 05/19/2025 at 11:41 Approved by: Boaz Condon M.D. on 05/19/2025 at 11:53
== END ==
LOC: MRI 15:47
PROVIDERS: Family Provider Family Medicine; PCP Registered Nurse; Referring Provider Obstetrics & Gynecology; Visit Provider Obstetrics & Gynecology
DX: N90.7 Vulvar cyst (principal); K57.90 Diverticulosis of intestine, part unspecified, without perforation or abscess without bleeding; Z90.710 Acquired absence of both cervix and uterus
CPT/HCPCS: 72197; A9579

== ENCOUNTER → 2025-06-13 08:51 | Outpatient (CLI) | payer MEDICARE, OTHER, SELFPAY ==
--- NOTE | 2025-06-13 08:53 | DI.RAD.S_ITS ---
PROCEDURE: XR T AND L SPINE 2 TO 3 VIEWS INDICATIONS: Wedge compression fracture of T9-T10 vertebra, initial encou TECHNIQUE: 2 views acquired of the thoracolumbar spine. COMPARISON: [facility], CR, XR T AND L SPINE 2 TO 3 VIEWS, 04/30/2025, 9:26. [facility], CR, XR THORACIC SPINE 2V, 04/04/2025, 9:19. FINDINGS: T10-L2 posterior spinal fusion with instrumentation for T12 compression fracture. Hardware alignment is unchanged. T9 compression fracture with unchanged height loss approximately 40 percent. L4-L5 grade 1 anterolisthesis. Multilevel facet arthropathy. Severe atherosclerotic calcification of the abdominal aorta. Left elbow arthroplasty. IMPRESSION: Stable examination. Dictated by: Bruce Guillen M.D. on 06/13/2025 at 16:47 Approved by: Bruce Guillen M.D. on 06/13/2025 at 16:49
== END ==
PROVIDERS: Family Provider Family Medicine; PCP Registered Nurse; Referring Provider Physician Assistant; Visit Provider Physician Assistant
DX: S22.070A Wedge compression fracture of T9-T10 vertebra, initial encounter for closed fracture (principal); M47.816 Spondylosis without myelopathy or radiculopathy, lumbar region; M43.16 Spondylolisthesis, lumbar region; I70.0 Atherosclerosis of aorta; Z98.1 Arthrodesis status
CPT/HCPCS: 72082

== ENCOUNTER → 2025-06-29 11:36 | Outpatient (CLI) | payer MEDICARE, OTHER, SELFPAY ==
--- NOTE | 2025-06-29 11:37 | DI.MG.S_ITS ---
MM screening mammo BI: 06/29/2025. BI-RADS: 2 CLINICAL: 84-year old female for bilateral screening mammogram. No Tyrer-Cuzick risk score calculation due to the patient's personal history of breast cancer. Patient reports a history of left breast carcinoma diagnosed at age 59. Status-post left lumpectomy with radiation therapy and hormonal therapy. No first-degree family history of breast cancer. Current reported family history of breast cancer: maternal aunt's daughter and paternal aunt's daughter. The patient had a prior left breast biopsy. PRIOR EXAMS 05/10/2024, 12/18/2022, 12/03/2021, 03/01/2020. MAMMOGRAPHY TECHNIQUE: 2D and 3D (tomosynthesis) digital mammographic views obtained, with additional images as needed for full coverage. Current study was also evaluated with a Computer Aided Detection (CAD) system. DENSITY D. The breasts are extremely dense, which lowers the sensitivity of mammography. MAMMOGRAPHY FINDINGS Right: No suspicious mass, asymmetry, microcalcification, or other abnormality seen. Left: Biopsy markers present on the left. There are no suspicious masses, calcifications, or other findings in the breast. IMPRESSION: Right * No evidence of malignancy. Left * No evidence of malignancy with benign findings. RECOMMENDATIONS Bilateral * Annual screening mammography. OVERALL ASSESSMENT CATEGORY BI-RADS-2: Benign. The [employer] recommends annual screening mammography beginning at age 40 for women with average risk of breast cancer. ELECTRONICALLY SIGNED: Kirti Mcdonald M.D. on 06/30/2025 at 12:00:34 AM PT Interpreting Station ID: [id number]
== END ==
LOC: MAMMO 11:36
PROVIDERS: Family Provider Family Medicine; PCP Registered Nurse; Referring Provider Registered Nurse; Visit Provider Registered Nurse
DX: Z12.31 Encounter for screening mammogram for malignant neoplasm of breast (principal); R92.343 Mammographic extreme density, bilateral breasts; Z85.3 Personal history of malignant neoplasm of breast; Z80.3 Family history of malignant neoplasm of breast
CPT/HCPCS: 77063; 77067